=== PATIENT | female | born 1990 | race Caucasian/White ===

== ENCOUNTER 2016-05-30 17:38 | Emergency (ER) | payer OTHER ==
[2016-05-30 17:47] VITALS: BP 148/92; PULSE 75; RESP 16; TEMP 98.1; O2SAT 99
--- NOTE | 2016-05-30 19:44 | UCPHY ---
H & P Time Seen by Provider: 05/30/16 17:52 Patient Type: New HPI/ROS: 26-year-old female presents complaining of left knee pain after skiing today Review of systems As per HPI General no fever no chills no weakness HEENT no eye pain no eye discharge. No eye redness, no sore throat Respiratory no cough, no shortness of breath Cardiac no chest pain, no peripheral edema GI no abdominal pain, no diarrhea, no constipation, no nausea, no vomiting no flank pain, no hematuria, no dysuria Musculoskeletal no myalgias, positive joint pain Heme no easy bruising, no easy bleeding Endo no polyuria, no polydipsia Skin no rashes, no pruritus Neuro no syncope, no dizziness, no headaches Psych is no suicidal ideation, no homicidal ideation Past Medical/Surgical History: Seasonal allergies Social History: College student Smoking Status: Never smoked Physical Exam: Alert and oriented in no acute distress nontoxic appearance, afebrile Atraumatic normocephalic Neck no JVD Lungs clear to auscultation, no respiratory distress Heart regular rate and rhythm Extremities no cyanosis clubbing edema Left knee No swelling. Positive lateral knee tenderness to palpation No gross laxity Pulses intact No calf swelling no calf tenderness Constitutional: Initial Vital Signs Temperature (C) 36.7 C 05/30/16 17:39 Heart Rate 75 05/30/16 17:39 Respiratory Rate 16 05/30/16 17:39 Blood Pressure 148/92 H 05/30/16 17:39 O2 Sat (%) 99 05/30/16 17:39 O2 Delivery Mode Room Air Allergies/Adverse Reactions: lorazepam [From Ativan] Allergy (Verified 05/30/16 17:47) metoclopramide HCl [From Reglan] Allergy (Verified 05/30/16 17:47) scopolamine Allergy (Verified 05/30/16 17:47) Home Medications: Medication Instructions Recorded MIRENA 05/30/16 ZYRTEC 05/30/16 Medical Decision Making - Diagnostics Imaging: Knee film negative ED Course/Re-evaluation: Patient seen and evaluated for knee pain Knee film negative Patient given neoprene knee brace and crutches Impression Knee sprain Plan Follow up Ortho Departure - Departure Disposition: Home, Routine, Self-Care Clinical Impression: Left knee sprain Condition: Good Instructions: Knee Sprain (ED) Referrals: NONE *PRIMARY CARE P,. [Primary Care Provider] - As per Instructions Mitch Nichols MD [Medical Doctor] - As per Instructions - PQRS PQRS Measurement: na
--- NOTE | 2016-05-30 19:57 | DX ---
Left Knee, Five Views History: Trauma, pain. Skiing trauma, fall. Comparison: None. Findings: No acute fracture or dislocation identified. No evidence of patellar fracture or dislocatio n. No definite joint effusion on the lateral view. Distal femur, proximal tibia, and proximal fibula demonstrate no definite fracture. Impression: 1. No definite acute fracture. 2. Recommend additional imaging if symptoms persist, if clinically indicated.
== END 2016-05-30 20:20 | disposition home or self-care (01) ==
LOC: CED 17:38
DX: S83.92XA Sprain of unspecified site of left knee, initial encounter (principal); J30.2 Other seasonal allergic rhinitis; X58.XXXA Exposure to other specified factors, initial encounter; Y93.23 Activity, snow (alpine) (downhill) skiing, snowboarding, sledding, tobogganing and snow tubing
CPT/HCPCS: 73564-PO; G0463-PO